=== PATIENT | male | born 1965 | race Caucasian/White ===

== ENCOUNTER 2022-12-19 07:27 | Outpatient (REF) | payer BC, SELFPAY ==
[2022-12-19 11:41] LABS: Appearance Urine Clear; Color Urine Yellow; Glucose Urine UA Negative (Negative); Leukocyte Esterase Urine Negative (Negative); Nitrite Urine Negative (Negative); Urine Blood Negative (Negative); Urine Ketones Trace mg/dL (Negative); Urine Protein Negative (Neg-Trace)
[2022-12-19 12:05] LABS: Alanine Aminotransferase 23 U/L (0-40); Albumin Level 4.3 g/dL (3.5-5.0); Alkaline Phosphatase 54 U/L (39-117); Anion Gap 13 (12-20); Aspartate Amino Transferase 25 U/L (5-37); Bilirubin Total 1.1 mg/dL (0.0-1.0); Blood Urea Nitrogen 10 mg/dL (9-16); Calcium 9.4 mg/dL (8.4-10.2); Carbon Dioxide 26 mmol/L (22-29); Chloride 107 mmol/L (96-108); Cholesterol 223 mg/dL (<200); Estimated Glomerular Filt Rate > 60; Glucose Fasting 96 mg/dL (60-99); HDL Cholesterol 71 mg/dL (>40); LDL Cholesterol Calculated 138 mg/dL (<100); Potassium 3.9 mmol/L (3.3-5.1); Sodium 142 mmol/L (135-145); Total Protein 7.4 g/dL (6.5-8.0); Triglycerides 70 mg/dL (<150)
[2022-12-19 12:10] LABS: Prostate Specific Antigen Scr 0.37 ng/mL (<0.05-4.0)
[2022-12-19 12:16] LABS: Creatinine Urine 214.23 mg/dL; Microalbum/Creatinine Ratio Ur 8.8 ug/mg cr (<30)
[2022-12-19 12:24] LABS: TSH reflex Free T4 1.07 uIU/mL (0.32-4.0)
== END 2022-12-19 07:28 | disposition home or self-care (01) ==
LOC: HO.WFDLDS 07:27
PROVIDERS: Visit Provider Family Medicine
DX: Z00.00 Encounter for general adult medical examination without abnormal findings (principal); I10 Essential (primary) hypertension; Z12.5 Encounter for screening for malignant neoplasm of prostate
CPT/HCPCS: 36415; 80053; 80061; 81003; 82043; 82570; 84153; 84443

== ENCOUNTER 2022-12-26 15:31 | Outpatient (AMB) | payer BC, SELFPAY ==
[2022-12-26 16:03] VITALS: BP 132/88; PULSE 82; RESP 13; TEMP 37.1; O2SAT 98; BMI 28.2
--- NOTE | 2022-12-26 16:03 | MHC.PC.OV ---
Vital Signs 12/26/22 16:03 Height 5 ft 10 in Weight 196 lb 6 oz BMI 28.2 BP 132/88 Blood Pressure Location Lt brachial Position Sitting Respiration 13 Pulse 82 Pulse Source Pulse Oximeter Temp 98.8 F Temp Source Oral Pulse Oximetry (%) 98 Oxygen Delivery Method Room Air Intake Visit Reasons: CPE with f/u labs and health maintenance Intake Note: Patient is here for an extended exam and he would like to report pain to both shoulders x1 year and worsening. Pain to the right elbow x6 months. Patient reports he has tried ibuprofen 800mg which did not help with the pain level. Patient reports he has not started to take the medications listed in his chart. Patient reports he wanted to see how his blood work looked before going back on medications again. 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 Labs were drawn 12/19/22. Reviewed labs with pt. Triglycerides 70. TC 223. LDl 138. HDL 71. He is on artovastatin 40mg daily. BP today 132/88. He is on valsartan 160mg daily. He reports he has stopped taking ibuprofen for his shoulder pain. Pt reports he had a colonoscopy when he turned 51. He is due again at 61 per pt. [facility] Medical History Tear meniscus knee Trigger finger, right middle finger Umbilical hernia High cholesterol Family History Maternal Grandmother Alcohol abuse Social History (Updated 12/26/22 @ 16:17 by She Bennett CMA) Household Members: Friend(s) Housing: House Are you a primary ambulatory care coordinator to a significant other at home: No Do you presently have visiting nurse or other home services: No 75 years or older and lives alone: No Alcohol intake: current Alcohol intake frequency: 3 or more drinks per day Alcohol type: hard liquor Patient Tobacco Use Status: Current everyday Tobacco user Tobacco use type: Smokeless Tobacco e-Cigarette/Vaping Use: Never Used Second Hand Smoke Exposure: No service: Yes ([employer]) Current occupational status: employed Current occupation: [employer] Current occupational exposures/hazards: Yes Sexual orientation: Unable to collect Gender identity: Unable to collect Cognitive needs: No Hearing needs: Yes Vision needs: Yes (Wears glasses for distance) Questionnaire PHQ-9 Over the last 2 weeks, how often have you been bothered by any of the following problems? 1. Little interest or pleasure in doing things: not at all 2. Feeling down, depressed, or hopeless: not at all 3. Trouble falling or staying asleep, or sleeping too much: not at all 4. Feeling tired or having little energy: not at all 5. Poor appetite or overeating: not at all 6. Feeling bad about yourself - or that you are a failure or have let yourself or your family down: not at all 7. Trouble concentrating on things, such as reading the newspaper or watching television: not at all 8. Moving or speaking so slowly that other people could have noticed. Or the opposite - being so fidgety or restless that you have been moving around a lot more than usual: not at all 9. Thoughts that you would be better off or of hurting yourself in some way: not at all Total score: 0 Depression Screening Interpretation: Negative Depression Screening Done: Yes 92707 - PHQ-9 Billing: Yes Source: Developed by Drs. John Pacheco, Geeta Soares, Keyon Goldsmith and colleagues, with an educational georgina from [employer]. Thrive Questionnaire Date Thrive assessed: 12/26/22 I am a: Patient What is your living situation today?: I have a steady place to live Within the past 12 months, did the food you bought not last and you didn't have the money to get more?: Never true Within the past 12 months, did you worry whether your food would run out before you got money to buy more?: Never true Do you have trouble paying for medicines?: No Do you have trouble getting transportation to medical appointments?: No Do you have trouble paying your heating and electricity bill?: No Do you have trouble taking care of your child, family member or friend?: No Do you have trouble with day-to-day activities such as bathing, preparing meals, shopping, managing finances, etc.?: No Are you currently unemployed and looking for a job?: No Are you interested in more education?: No Please select the resources that you would like help with: None Currently or been in a relationship where the following occur: no concerns reported AUDIT C Alcohol Use Questionnaire (AUDIT-C) 1. How often do you have a drink containing alcohol?: 4 or more times a week 2. How many drinks containing alcohol do you have on a typical day when you are drinking?: 3 or 4 (vodka and fresca) 3. How often do you have six or more drinks on one occasion?: Monthly Total Score: 7 Score Reviewed/Action Taken: Yes SUKHWINDER-7 AMB Questionnaire SUKHWINDER-7 Date SUKHWINDER - 7 assessed: 12/26/22 Feeling nervous, anxious, or on edge: 0 = Not at all Not being able to stop or control worryin = Not at all Worrying too much about different things: 0 = Not at all Trouble relaxin = Not at all Being so restless that it is hard to sit still: 0 = Not at all Becoming easily annoyed or irritable: 0 = Not at all Feeling afraid as if something awful might happen: 0 = Not at all Total SUKHWINDER-7 score (0-4 normal; 5-9 mild; 10-14 moderate; 15-21 severe): 0 Source: Developed by Drs. John Pacheco, Geeta Soares, Keyon Goldsmith and colleagues, with an educational georgina from [employer]. SUKHWINDER-7 Assessment Billing SUKHWINDER-7 Assessment Tool: SUKHWINDER-7 Assessment 53238 Review of Systems Const Denies chills, Denies fatigue, Denies fever(s), Denies headache(s) and Denies weakness Eyes Denies change in vision ENT Denies dizziness, Denies headache(s), Denies hearing loss, Denies nasal congestion, Denies sinus pain, Denies sinus pressure and Denies sore throat Card Denies chest pain, Denies lightheadedness, Denies dyspnea and Denies other (palpitations) Resp Denies cough, Denies dyspnea and Denies wheezing GI Denies abdominal pain, Denies melena, Denies hematochezia, Denies change in bowel habits, Denies dyspepsia and Denies nausea Denies hematuria and Denies dysuria Musc Denies abnormal gait, Denies myalgias, Denies arthralgias, Denies numbness and Denies tingling Skin/Breast Denies rash, Denies unusual bruising and Denies wounds Neuro Denies abnormal gait, Denies dizziness, Denies headache(s), Denies memory loss, Denies numbness, Denies Sensory deficit (Neuro), Denies tingling and Denies weakness Psych Denies anxiety, Denies depression and Denies memory loss Endo Denies cold intolerance, Denies fatigue, Denies heat intolerance, Denies polydipsia and Denies polyuria Glen/Lymph Denies easy bleeding and Denies easy bruising Aller/Immun Denies wheezing Physical exam (Primary Care) Vital Signs: Last Vital Signs Temp 98.8 F 12/26/22 16:03 Pulse 82 12/26/22 16:03 Resp 13 12/26/22 16:03 BP 132/88 12/26/22 16:03 Pulse Ox 98 12/26/22 16:03 Oxygen Delivery Method Room Air 12/26/22 16:03 BMI result Body Mass Index 28.2 Tobacco/Smoking Status: Tobacco use Status Tobacco use date assessed 12/26/22 12/26/22 16:11 Patient Tobacco Use Status Current everyday Tobacco 12/26/22 16:17 Tobacco use type Smokeless Tobacco 12/26/22 16:17 e-Cigarette/Vaping Use Never Used 12/26/22 16:17 PHQ-9: PHQ-9 Score PHQ-9: Total score 0 12/26/22 16:15 Depression Screening Interpretation: Negative Thrive Assessment: Date of Thrive Assessment Date Thrive assessed 12/26/22 12/26/22 16:15 Currently or been in a relationship where the following occur: no concerns reported Const General: no acute distress, well developed, alert and awake Nutritional Appearance: well nourished Orientation/consciousness: patient oriented x3 HENMT Head: Yes normocephalic and Yes atraumatic Ears: hearing grossly normal bilaterally and TM's normal bilaterally General nose exam: Normal external nose present and Normal nares present Mouth: Normal oral and palatal mucosa present and moist mucous membranes Teeth and gingiva: dentition normal Throat: Yes posterior oropharynx normal Eyes General: appearance normal, both eyes and all related structures Pupils: Equal, round and reactive pupils present and Pupil accommodation reflex normal EOM: EOMs intact bilaterally Neck Neck: Yes normal visual inspection, Yes no lymphadenopathy and Yes trachea midline Thyroid: Thyroid normal Carotids: no bruits Lymphatic: no lymphadenopathy noted Chest Chest palpation & inspection: normal inspection of the chest Resp Effort & Inspection: normal respiratory effort Auscultation: clear to auscultation bilaterally Cardio Rate: regular rate Rhythm: regular rhythm Heart sounds: S1 normal heart sound present, S2 normal heart sound present, no gallops, no murmurs and no rubs Bruits: no abdominal aortic bruits and no carotid bruits GI Palpation (GI): No Abdominal aortic bruit present, Soft to palpation, nontender, No hepatosplenomegaly present and No Rebound tenderness present Auscultation: normal bowel sounds General: Yes no CVA tenderness Back/Spine/Pelvis Back: no CVA tenderness Cervical Spine: cervical ROM normal and No Cervical spine tenderness Thoracic/Lumbar Spine: thoraco-lumbar ROM normal, No pain with thoraco-lumbar ROM, No thoracic spinal tenderness and No lumbar spinal tenderness Skin Lesions: no lesions Rashes: no rashes Trauma: no lacerations or abrasions Wounds: no wounds Nails: normal Neuro General: patient oriented x3 Cranial nerves: Yes Equal, round and reactive pupils present Cognition (Neuro): normal cognition Gait exam (Neuro): Normal gait present Motor exam (neuro): 5/5 motor strength present throughout Sensory Exam: No Sensory deficit (Neuro) Deep tendon reflexes (DTR's): Right patellar reflex intensity grade: 2+ and Left patellar reflex intensity grade: 2+ Extrem General: Yes normal to inspection and No edema Psych Appearance: grossly normal Affect: normal affect Attitude: cooperative Thought process: Normal thought process present Assessment and Plan Assessment & Plan (1) Adult general medical exam: Code(s): Z00.00 - Encounter for general adult medical examination without abnormal findings Plan: 56-year-old male presents for complete physical exam encouraged healthy diet with active lifestyle and plenty of exercise (2) Bilateral shoulder pain: Code(s): M25.511 - Pain in right shoulder; M25.512 - Pain in left shoulder Plan: ongoing bilateral shoulder pain. X-rays and PT are ordered though patient did not realize this. He will get started with these. I will call him if x-rays require action. He will call me if PT is not resolving his problem. Would then consider additional imaging and or referral to Ortho. (3) Hypertension: Code(s): I10 - Essential (primary) hypertension Plan: Blood pressure still in prehypertensive range. Advised a diet lower in salt / sodium. Advised weight loss and exercise as tolerated. He is able to check his blood pressures at home. He will call me if BP greater than 140/90 consistently would resume valsartan (4) Hyperlipidemia: Code(s): E78.5 - Hyperlipidemia, unspecified Plan: LDL is slightly elevated by HDL ratios are good encouraged a diet a little lower in saturated fats and cholesterol no current need for atorvastatin will follow (5) Screening for colon cancer: Code(s): Z12.11 - Encounter for screening for malignant neoplasm of colon Plan: patient had a colonoscopy at age 51 and was told to follow-up at age 61 up-to-date (6) Screening for prostate cancer: Code(s): Z12.5 - Encounter for screening for malignant neoplasm of prostate Plan: PSA was within normal limits (7) Bilateral change in hearing: Code(s): H91.93 - Unspecified hearing loss, bilateral Orders: Orders Comprehensive Dayhoit. Panel Fast Today Z00.00 - Encounter for general adult medical examination without abnormal findings Lipid Panel Today Z00.00 - Encounter for general adult medical examination without abnormal findings Referrals Audiology Referral H91.93 - Unspecified hearing loss, bilateral Medications: Discontinued valsartan Discontinued Reason: Doctor's Order 160 mg PO DAILY 30 days 30 tabs 0RF atorvastatin Discontinued Reason: Doctor's Order 40 mg PO DAILY 90 days 90 tabs 3RF Coding Level of Care Code Est Pt Level 3 (41318) Est Pt Prev Care 40-64y(80829) Diagnoses Adult general medical exam Z00.00 Bilateral shoulder pain M25.511; M25.512 Hypertension I10 Hyperlipidemia E78.5 Screening for colon cancer Z12.11 Screening for prostate cancer Z12.5 Bilateral change in hearing H91.93 Additional Codes SUKHWINDER-7 Assessment Billing - SUKHWINDER-7 Assessment Tool: SUKHWINDER-7 Assessment 63294 ([id number])
== END 2022-12-26 16:52 | disposition home or self-care (01) ==
PROVIDERS: PCP Family Medicine; Visit Provider Family Medicine
DX: Z00.00 Encounter for general adult medical examination without abnormal findings (principal); M25.511 Pain in right shoulder; M25.512 Pain in left shoulder; I10 Essential (primary) hypertension; E78.5 Hyperlipidemia, unspecified; H91.93 Unspecified hearing loss, bilateral
CPT/HCPCS: 99213; 99396

== ENCOUNTER 2022-12-27 09:17 | Outpatient (REF) | payer BC, SELFPAY ==
--- NOTE | ~2022-12-27 | XR_ITS ---
EXAMINATION: XR BILATERAL SHOULDERS CLINICAL INFORMATION: Bilateral shoulder pain. COMPARISON: None TECHNIQUE: 4 views of each shoulder. RIGHT SHOULDER: Moderate degenerative changes in the acromioclavicular joint with joint space narrowing and hypertrophic change. Degenerative changes with hypertrophic change along the glenoid. Glenohumeral alignment preserved. Mild hypertrophic change versus small soft tissue calcification change along the lateral aspect of the humeral head. Degenerative changes in the imaged upper thoracic spine. LEFT SHOULDER: Mild degenerative changes in the acromioclavicular joint with joint space narrowing and hypertrophic change. Small sclerotic focus in the humeral head, possibly a bone island. Degenerative changes with hypertrophic change along the glenoid. 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
--- NOTE | ~2022-12-27 | XR_ITS ---
EXAMINATION: XR BILATERAL SHOULDERS CLINICAL INFORMATION: Bilateral shoulder pain. COMPARISON: None TECHNIQUE: 4 views of each shoulder. RIGHT SHOULDER: Moderate degenerative changes in the acromioclavicular joint with joint space narrowing and hypertrophic change. Degenerative changes with hypertrophic change along the glenoid. Glenohumeral alignment preserved. Mild hypertrophic change versus small soft tissue calcification change along the lateral aspect of the humeral head. Degenerative changes in the imaged upper thoracic spine. LEFT SHOULDER: Mild degenerative changes in the acromioclavicular joint with joint space narrowing and hypertrophic change. Small sclerotic focus in the humeral head, possibly a bone island. Degenerative changes with hypertrophic change along the glenoid. XR/XR shoulder RT min 2V IMPRESSION: Moderate degenerative changes in the bilateral shoulders.
== END 2022-12-27 09:18 | disposition home or self-care (01) ==
LOC: HO.HMGCX 09:17
PROVIDERS: PCP Family Medicine; Visit Provider Family Medicine
DX: M25.511 Pain in right shoulder (principal); M25.512 Pain in left shoulder
CPT/HCPCS: 73030

== ENCOUNTER 2023-02-07 12:39 | Outpatient (AMB) | payer BC, SELFPAY ==
--- NOTE | 2023-02-07 12:46 | A.OFFVIS_ITS ---
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 Patient states that he injured his right shoulder while playing sports several years ago. Since that time he has had difficulty lifting his right hand above shoulder height. He has done physical therapy which aggravated his pain. He has also tried Tylenol and anti-inflammatory medicines which gave him minimal relief. He has had injections in the past which gave him no relief. Allergies Penicillins Allergy (Mild, Verified 12/26/22 16:08) Rash Medication List - Last Reconciled 02/08/23 by Sander Balbuena MD ibuprofen 800 mg PO Q8H PRN 30 days PFSH Medical History (Updated 02/07/23 @ 13:28 by Sander Balbuena MD) Tear meniscus knee Trigger finger, right middle finger Umbilical hernia High cholesterol Surgical History (Updated 02/07/23 @ 12:50 by Kyleigh Robertson CMA) H/O left knee surgery Family History Maternal Grandmother Alcohol abuse Social History (Updated 12/26/22 @ 16:17 by She Bennett CMA) Household Members: Friend(s) Housing: House Are you a primary career based intervention coordinator to a significant other at home: No Do you presently have visiting nurse or other home services: No Alcohol intake: current Alcohol intake frequency: 3 or more drinks per day Alcohol type: hard liquor Patient Tobacco Use Status: Current everyday Tobacco user Tobacco use type: Smokeless Tobacco e-Cigarette/Vaping Use: Never Used Second Hand Smoke Exposure: No service: Yes ([employer]) Current occupational status: employed Current occupation: [employer] Current occupational exposures/hazards: Yes Sexual orientation: Unable to collect Gender identity: Unable to collect Cognitive needs: No Hearing needs: Yes Vision needs: Yes (Wears glasses for distance) Physical Exam Vital Signs: BMI result Body Mass Index 28.1 Const Other: Well-nourished well-developed very friendly male awake alert and oriented x3 in no acute distress Extrem Other: Bilateral upper extremity examination shows good capillary refill, no skin lesions noted, normal sensation light touch Bilateral shoulder examination shows 4+ out of 5 strength with supraspinatus testing, positive impingement signs, tenderness over his acromioclavicular joint, no instability Results Reviewed Results Reviewed: X-rays of the patient's bilateral shoulder show severe acromioclavicular joint narrowing, type 2 acromion, no acute bony abnormalities Assessment & Plan Assessment & Plan (1) Impingement of right shoulder: Code(s): M25.811 - Other specified joint disorders, right shoulder Plan: Mr. Andersen presents with bilateral shoulder pains and weakness, right greater than left, due to impingement syndrome, acromioclavicular joint arthritis and possible full-thickness rotator cuff tearing. Thus, I will send the patient for an MRI of his right shoulder for further evaluation. I will see him back once the MRI is completed to discuss the findings and treatment options. Feel free to call me at any time should questions regarding his orthopedic management arise. Thank you very much for asking me to see this very friendly gentleman. I spent 22 minutes in reviewing the patient's records and imaging studies, seeing the patient and documenting in the medical record. Orders: Orders MR shoulder RT wo con 02/07/23 M25.811 - Other specified joint disorders, right shoulder Coding Level of Care Code New Pt Level 2 (65570) Diagnoses Impingement of right shoulder M25.811
[2023-02-07 12:48] VITALS: BMI 28.1
== END 2023-02-07 13:46 | disposition home or self-care (01) ==
PROVIDERS: PCP Family Medicine; Visit Provider Orthopaedic Surgery
DX: M25.811 Other specified joint disorders, right shoulder (principal)
CPT/HCPCS: 99202

== ENCOUNTER → 2023-02-07 12:39 | Outpatient (BNVA) | payer BC, SELFPAY | PROVIDERS: PCP Family Medicine; Visit Provider Orthopaedic Surgery ==

== ENCOUNTER 2023-02-08 07:00 | Outpatient (RCR) | payer BC, SELFPAY ==
--- NOTE | 2023-01-18 12:23 | MHC.PT.EP ---
[facility] [place] Office [place] Office [place] Office [address] Areli Lyman [address] [phone] F: [phone] F: [phone] F: [phone] F: [phone] Physical Therapy Plan of Care Date of Evaluation: 01/18/23 Date of Surgery: NA Diagnosis: B SHOULDER PAIN Assessment: Pt IS 57 YO M REFERRED TO PT FROM DR HOFFMAN WITH CHRONIC B SHLDER PAIN (Pt ALSO WITH R ELBOW PAIN). NO SPECIFIC INJURY TO SHLDERS, REPORTS PLAYED BASEBALL AND SOFTBALL WHEN YOUNGER AND CURRENTLY LIKES TO GOLF. 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 PRESENTS WITH POOR POSTURE, SIGNIFICANTLY LIMITED ROM AND STRENGTH IN SHLDERS (KRISTI ABDUCTION). POSITIVE IMPINGEMENT NOTED. EPICONDYLITIS NOTED R ELBOW. SHOULD BENEFIT FROM PT TO ADDRESS THESE ISSUES Frequency and Duration: The patient will be seen 2X/WK X 8 WKS Short Term Goals: 1. INCREASED POSTURE AWARENESS AND AWARENESS SHOULDER CARE 2. IMPROVED SLEEP 3. 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 I HEP WITH DC EX PLAN 2. INCREASED B SHLDER ROM FOR FLEX AND ABDUCTION TO AT LEAST 160 DEGREES EA 3. DECREASED R ELBOW PAIN AT LEAST 50% WITH ADLS 4. DECREASED SHOULDER PAIN AT LEAST 50% WITH ADLS 5. INCREASED SHLDER FLEX AND ABD STRENGTH AT LEAST 1/2 MM GRADE B Treatment Plan: Modalities to reduce pain, spasms and effusion. Manual therapy to restore motion and function. Therapeutic exercise to improve strength and flexibility. Neuromuscular re-education for posture and balance. Therapeutic activities to return to functional activities of daily living. Electronically signed by: ALVIN HERNANDEZ PT Please sign and return to therapist. Thank you for your referral.
--- NOTE | 2023-03-01 09:10 | MHC.PT.DC ---
[facility] [place] Office [place] Office [place] Office [address] Areli Lyman [address] [phone] F: [phone] F: [phone] F: [phone] F: [phone] Physical Therapy Discharge Report Diagnosis: B SHOULDER PAIN Date of Surgery: NA Date of Evaluation: 01/18/23 Date of Discharge: 03/01/23 Treatments to Date: 5 Cancellations to Date: No Shows to Date: Discharge Status: Patient Elected to Stop Discharge Summary: Pt WITH 5 PT SESSIONS WITHOUT RELIEF IN SHOULDER PAIN. SAW ORTHO WHO ORDERED MRI (+SUPRASPINATUS TEAR) TO HAVE SHLDER SURGERY WITH DR MICHAEL ON MAR 10, ORTHO FU Feb. THIS PT SPOKE WITH Pt AND MAGGIE SEWELL RE PO PT EVAL (FEASIBLY Feb AFTER FIRST PO VISIT UNLESS DR MICHAEL LIKES HIS Pt'S TO BE SEEN EARLIER). MAGGIE WILL FIND OUT THIS INFO AND SPEAK WITH ROX PRADO (NEW COORDINATOR) FOR HER TO CONTACT PT TO SCHEDULE PO EVAL Electronically signed by: ALVIN HERNANDEZ PT Please sign and return to therapist. Thank you for your referral.
== END 2023-03-01 09:11 | disposition home or self-care (01) ==
LOC: HO.PTWFD 07:00
PROVIDERS: PCP Family Medicine; Visit Provider Family Medicine
DX: M25.511 Pain in right shoulder (principal); M25.512 Pain in left shoulder
CPT/HCPCS: 97110; 97140; 97150; 97162; 97535

== ENCOUNTER 2023-02-15 08:31 | Outpatient (AMB) | payer BC, SELFPAY ==
--- NOTE | 2023-02-15 08:33 | A.OFFVIS_ITS ---
Intake Intake Visit Reasons: Right shoulder pain Intake Note: Mauro is a 57 year old male who presents with complaints of progressively worsening right shoulder pain and weakness. The patient describes his right shoulder pain as sharp and severe in nature. His pain has gotten worse over the last few years in spite of continued non operative treatments. He has had difficulty playing golf and sleeping because of his pain. He has done physical therapy exercises which aggravated his pain. He has also tried Tylenol and ibuprofen which gave him minimal relief. He reports difficulty lifting his right hand above shoulder height. Allergies Penicillins Allergy (Mild, Verified 02/15/23 08:37) Rash Medication List - Last Reconciled 02/15/23 by Sander Balbuena MD ibuprofen 800 mg PO Q8H PRN 30 days PFSH Medical History (Updated 02/07/23 @ 13:28 by Sander Balbuena MD) Tear meniscus knee Trigger finger, right middle finger Umbilical hernia High cholesterol Surgical History (Updated 02/07/23 @ 12:50 by Kyleigh Robertson [facility]) H/O left knee surgery Family History Maternal Grandmother Alcohol abuse Social History (Updated 12/26/22 @ 16:17 by She Bennett CMA) Household Members: Friend(s) Housing: House Are you a primary managed care liaison to a significant other at home: No Do you presently have visiting nurse or other home services: No 75 years or older and lives alone: No Alcohol intake: current Alcohol intake frequency: 3 or more drinks per day Alcohol type: hard liquor Patient Tobacco Use Status: Current everyday Tobacco user Tobacco use type: Smokeless Tobacco e-Cigarette/Vaping Use: Never Used Second Hand Smoke Exposure: No service: Yes ([employer]) Current occupational status: employed Current occupation: [employer] Current occupational exposures/hazards: Yes Sexual orientation: Unable to collect Gender identity: Unable to collect Cognitive needs: No Hearing needs: Yes Vision needs: Yes (Wears glasses for distance) Physical Exam Const Other: Well-nourished well-developed very friendly male awake alert and oriented x3 in no acute distress Lungs - clear to auscultation bilaterally with symmetric expansion Cardiovascular exam - regular rate and rhythm Abdominal exam - soft nontender nondistended Extrem Other: Bilateral upper extremity examination shows good capillary refill, no skin lesions noted, normal sensation light touch Right shoulder examination shows decreased range of motion when compared to his left shoulder, 4/5 strength with supraspinatus testing, positive impingement signs, tenderness over his acromioclavicular joint, no instability Results Reviewed Results Reviewed: MRI of the patient's right shoulder show severe acromioclavicular joint narrowing, a type 3 acromion, a full-thickness tear of the supraspinatus tendon Assessment & Plan Assessment & Plan (1) Right shoulder pain: Code(s): M25.511 - Pain in right shoulder (2) Impingement of right shoulder: Code(s): M25.811 - Other specified joint disorders, right shoulder Plan Mr. Andersen presents with progressively worsening right shoulder pain and weakness due to impingement syndrome, acromioclavicular joint arthritis and a full-thickness rotator cuff tear. I had a lengthy discussion with the patient regarding the treatment options. At this point the patient has failed continued non operative treatments. The risks and benefits of right shoulder surgery were discussed at length with the patient. The patient wishes to proceed with surgery. Surgery will most likely involve right shoulder diagnostic arthroscopy with distal clavicle excision, acromioplasty and rotator cuff repair. The patient will contact my office to pick a surgery date. He will follow-up as instructed. Feel free to call me at any time should questions regarding his orthopedic management arise. I spent 22 minutes in reviewing the patient's records and imaging studies, seeing the patient and documenting in the medical record. Coding Level of Care Code Est Pt Level 2 (66892) Diagnoses Right shoulder pain M25.511 Impingement of right shoulder M25.811
== END 2023-02-15 08:58 | disposition home or self-care (01) ==
PROVIDERS: PCP Family Medicine; Visit Provider Orthopaedic Surgery
DX: M25.811 Other specified joint disorders, right shoulder (principal); M25.511 Pain in right shoulder
CPT/HCPCS: 99213

== ENCOUNTER → 2023-02-15 08:31 | Outpatient (BNVA) | payer BC, SELFPAY | PROVIDERS: PCP Family Medicine; Visit Provider Orthopaedic Surgery ==

== ENCOUNTER 2023-03-10 10:14 | Day surgery (SDC) | payer BC, SELFPAY ==
[2023-03-07 07:06] VITALS: BMI 28.1
--- NOTE | 2023-03-08 12:25 | P.CONAN_ITS ---
HPI - Anesthesia Eval Consult details Narrative: 57yo M for Right Shoulder Arthroscopy,distal clavical excision,acromialplasty, Capsular Release and manipulation Follows [facility] PCP. Stable at 11/2022 PE appointment. [facility] Active Problems Active Problems: All Active Problems (Updated 02/07/23 @ 13:28 by Sander Balbuena MD) Impingement of right shoulder (Acute) Right tennis elbow (Acute) Screening for prostate cancer (Acute) Screening for colon cancer (Acute) Adult general medical exam (Acute) Ganglion cyst of foot (Acute) Bilateral shoulder pain (Acute) Hyperlipidemia (Acute) Hypertension (Acute) Laboratory exam ordered as part of routine general medical examination (Acute) Past Medical History Medical History Tear meniscus knee Trigger finger, right middle finger Umbilical hernia High cholesterol Family History Family History Maternal Grandmother Alcohol abuse Surgical History Surgical History H/O left knee surgery Social History Social History (Updated 12/26/22 @ 16:17 by She Bennett CMA) Household Members: Friend(s) Housing: House Are you a primary career transition specialist to a significant other at home: No Do you presently have visiting nurse or other home services: No Alcohol intake: current Alcohol intake frequency: 0-2 drinks per day Alcohol type: hard liquor Patient Tobacco Use Status: Current everyday Tobacco user Tobacco use type: Smokeless Tobacco e-Cigarette/Vaping Use: Never Used Second Hand Smoke Exposure: No Use of substances other than those prescribed or required for medical reasons: Yes Substance Use Frequency: Occasionally Are you DNR?: No Advance Directives: No (pt wants to be made DNR) Advance Directives Information Provided: Yes Advance Directives on File: No Recently lost weight without trying: No Nutrition Risks: No Nutritional Risk service: Yes ([employer]) Current occupational status: employed Current occupation: [employer] Current occupational exposures/hazards: Yes Sexual orientation: Unable to collect Gender identity: Unable to collect Cognitive needs: No Hearing needs: Yes Vision needs: Yes (Wears glasses for distance) Meds Allergies Allergy/AdvReac Type Severity Reaction Status Date / Time Penicillins Allergy Mild Rash Verified 02/15/23 08:37 Active Medications: Current Medications Clindamycin Phosphate (Cleocin) 600 mg in 50 mls @ 100 mls/hr IV PREOP ONE Stop: 03/10/23 07:02 Exam Height,Weight and Vital Signs: Height 5 ft 10 in Weight 88.904 kg Pertinent Lab Results Pertinent Lab Results: Laboratory Tests 12/19/22 07:10 Sodium 142 Potassium 3.9 Chloride 107 Carbon Dioxide 26 BUN 10 Creatinine 0.91 Assessment and Plan Assessment Anesthesia Assessment: Chart Reviewed
[2023-03-10] VITALS (8 sets, daily range): BP systolic 105–156; BP diastolic 80–105; PULSE 70–81; RESP 14–18; TEMP 36.4–37; O2SAT 94–99
[2023-03-10] MEDS: Lactated Ringers 1,000 ML 100 ML IVCONT (11:02)
--- NOTE | 2023-03-10 12:08 | P.CONAN_ITS ---
[facility], [facility] Active Problems Active Problems: All Active Problems (Updated 02/07/23 @ 13:28 by Sander Balbuena MD) Impingement of right shoulder (Acute) Right tennis elbow (Acute) Screening for prostate cancer (Acute) Screening for colon cancer (Acute) Adult general medical exam (Acute) Ganglion cyst of foot (Acute) Bilateral shoulder pain (Acute) Hyperlipidemia (Acute) Hypertension (Acute) Laboratory exam ordered as part of routine general medical examination (Acute) Past Medical History Medical History Tear meniscus knee Trigger finger, right middle finger Umbilical hernia High cholesterol Family History Family History Maternal Grandmother Alcohol abuse Family history of problems with anesthesia: No Surgical History Surgical History H/O left knee surgery History of Problems with Anesthesia: No Social History Social History (Updated 12/26/22 @ 16:17 by She Bennett CMA) Household Members: Friend(s) Housing: House Are you a primary rn wound care to a significant other at home: No Do you presently have visiting nurse or other home services: No Alcohol intake: current Alcohol intake frequency: 0-2 drinks per day Alcohol type: hard liquor Patient Tobacco Use Status: Current everyday Tobacco user Tobacco use type: Smokeless Tobacco e-Cigarette/Vaping Use: Never Used Second Hand Smoke Exposure: No Use of substances other than those prescribed or required for medical reasons: Yes Substance Use Frequency: Occasionally Are you DNR?: No Advance Directives: No Advance Directives Information Provided: Yes Advance Directives on File: No Recently lost weight without trying: No Nutrition Risks: No Nutritional Risk service: Yes ([employer]) Current occupational status: employed Current occupation: [email or web address] Current occupational exposures/hazards: Yes Sexual orientation: Unable to collect Gender identity: Unable to collect Cognitive needs: No Hearing needs: Yes Vision needs: Yes (Wears glasses for distance) Meds Allergies Allergy/AdvReac Type Severity Reaction Status Date / Time Penicillins Allergy Mild Rash Verified 02/15/23 08:37 Active Medications: Current Medications Lactated Ringer's (Lr) 1,000 mls @ 100 mls/hr IVCONT .Q10H JASS Last Admin: 03/10/23 11:02 Dose: 100 mls/hr Exam Height,Weight and Vital Signs: Height 5 ft 10 in Weight 88.904 kg Last Vital Signs Temp 98.6 F 03/10/23 10:53 Pulse 81 03/10/23 10:53 Resp 16 03/10/23 10:53 BP 156/105 H 03/10/23 10:53 Pulse Ox 97 03/10/23 10:53 O2 Del Method Room Air 03/10/23 10:53 Airway Mallampati Class: II TM Dist: >3cm Neck ROM: Full Assessment and Plan Assessment Anesthesia Assessment: Anesthesia Plan Discussed and Chart Reviewed Final Anesthetic Review Family History of Problems with Anesthesia: No History of Problems with Anesthesia: No NPO: Yes ASA Class: II Final Preanesthetic Review: No Changes in Pt Med Stat, Meds/Allgs Chart Reviewed, Consent Obtained/Reviewed and Anes Risks/Benef Reviewed Patient Risk: Low Procedure Risk: Intermediate Anesthetic Plan Anesthetic Plan: GA Disposition: Standard PACU
--- NOTE | 2023-03-10 15:49 | PM.OP ---
Brief Operative Note Date of Service: 03/10/23 Pre-op diagnosis: Right shoulder impingement syndrome, right shoulder acromioclavicular joint arthritis, right shoulder rotator cuff tear Post-op diagnosis: same Procedure: Right shoulder diagnostic arthroscopy with right shoulder arthroscopic distal clavicle excision, right shoulder arthroscopic acromioplasty, right shoulder mini-open rotator cuff repair Implants: One suture anchor (He [employer] Nephew Twinfix suture anchor with #2 Ultrabraid suture) Surgeon: Sander Balbuena MD Anesthesia: GETA and regional Was an [employer] Supervisor used for this Procedure?: No Estimated blood loss (mL): 10 Pathology: none sent Condition: stable Disposition: PACU
--- NOTE | 2023-03-10 15:50 | P.OP_ITS ---
Operative Note Operative Note Date of Service: 03/10/23 Narrative: After the patient was identified as Mauro Andersen and his right shoulder was initialed by myself the patient was brought to the holding area where a right shoulder interscalene regional block was performed by the anesthesiologist in routine fashion. The patient was then brought to the operating room where general anesthesia was induced by the anesthesiologist in routine fashion. Because of the patient's allergy to penicillins he was given 600 mg of IV clindamycin preoperatively for infection prophylaxis. Examination under anesthesia of the patient's right shoulder showed full passive range of motion of the patient's right shoulder when compared to the left. The patient was gently positioned in the beach chair position with all bony prominences well padded. The patient's right shoulder region and upper extremity were prepped and draped in sterile fashion. A formal time-out was completed. A #11 scalpel blade was used to make a posterior portal 2 cm inferior and 1 cm medial to the posterolateral corner of the acromion. Blunt trocar technique was used to enter the glenohumeral joint in routine fashion. An anterior portal was made just lateral to the coracoid process after proper positioning was confirmed using a spinal needle. Diagnostic arthroscopy showed minimal degenerative changes of the glenoid and humeral head articular surfaces. There was a full-thickness tear of the supraspinatus tendon. There was no evidence of injury to the biceps tendon or its insertion onto the glenoid. There was no inflammation of the anterior joint capsule. The arthroscope was then placed from the posterior portal into the subacromial space. A lateral portal was made 2 fingerbreadths lateral to the anterior lateral corner of the acromion. The ArthroCare Wand was used to ablate soft tissues along the undersurface of the acromion as well as to excise the coracoacromial ligament. There was a sharp spur along the undersurface of the acromion which was removed using the hooded bur. The arthroscope was then placed into the lateral portal and the acromioplasty was completed with the bur in the posterior portal using the posterior aspect of the acromion as a cutting block. The ArthroCare Wand was then brought in through the anterior portal and was used to ablate soft tissues along the acromioclavicular joint and distal clavicle. The posterior and superior ligamentous structures were left intact. A distal clavicle excision of 8 mm was performed using the hooded bur. Any remaining bursal tissue was removed using the arthroscopic shaver. The subacromial space was irrigated and then drained. All arthroscopic instruments were removed. Sterile gloves were changed and the shoulder was once again prepped with Betadine. A #15 scalpel blade was used to extend the lateral portal to the lateral edge of the acromion. The subacromial tissues were dissected using electrocautery down to the superficial deltoid fascia. The trocar split in the anterior raphe of the deltoid was then extended to the lateral edge of the acromion using electrocautery and curved Seymour scissors. Any remaining bursal tissue was removed using curved Seymour scissors. Subacromial and subdeltoid adhesions were bluntly dissected. The undersurface of the acromion was palpated and it was smooth. A #2 Ethibond tag suture was placed into the supraspinatus tendon. The tendon was easily mobilized to its insertion point on the glenoid. The wound was irrigated with copious amounts of normal saline solution. One suture anchor was placed into the greater tuberosity in routine fashion. The rotator cuff repair was then performed using horizontal mattress sutures under minimal tension with the patient's elbow at their side. Following the repair the shoulder was taken through a full range of motion. The repair was stable. The wound was irrigated with copious amounts of normal saline solution. The superficial and deep deltoid fascia were closed with #1 Vicryl [id number] interrupted suture. The wound was once again irrigated. The subcutaneous tissues were closed with 2-0 Vicryl interrupted suture. The skin was closed with 3-0 Prolene subcuticular suture and Steri- Strips. The anterior and posterior portals were closed with 3-0 nylon interrupted suture. Dry sterile dressing was placed over all incisions. The patient's right upper extremity was placed into a sling. The patient was awoken and extubated in the operating room. The patient was transferred to the recovery room in stable condition.
[2023-03-10] MEDS: Clindamycin Phosphate/D5W 600 MG/50 ML PIGGYBACK 100 MG IV (16:26)
== END 2023-03-10 17:30 | disposition home or self-care (01) ==
PROVIDERS: PCP Family Medicine; Visit Provider Orthopaedic Surgery
PROC: (CPT 29805; principal; 2023-03-10 12:40)
DX: M75.101 Unspecified rotator cuff tear or rupture of right shoulder, not specified as traumatic (principal); M75.41 Impingement syndrome of right shoulder; M19.011 Primary osteoarthritis, right shoulder; E78.00 Pure hypercholesterolemia, unspecified; Z88.0 Allergy status to penicillin; Z98.890 Other specified postprocedural states; F17.290 Nicotine dependence, other tobacco product, uncomplicated; Z79.1 Long term (current) use of non-steroidal anti-inflammatories (NSAID)
CPT/HCPCS: 29824; 23412; 29826; C1713; J0171; J0665; J0736; J1100; J2250; J2405; J2704; J2795

== ENCOUNTER → 2023-03-10 10:14 | Outpatient (BNV) | payer BC, SELFPAY | PROVIDERS: PCP Family Medicine; Visit Provider Orthopaedic Surgery | DX: M75.122 Complete rotator cuff tear or rupture of left shoulder, not specified as traumatic (principal); M19.012 Primary osteoarthritis, left shoulder; M75.42 Impingement syndrome of left shoulder | CPT/HCPCS: 23412; 29824; 29826 ==

== ENCOUNTER 2023-03-23 09:01 | Outpatient (AMB) | payer BC, SELFPAY ==
--- NOTE | 2023-03-23 09:08 | A.OFFVIS_ITS ---
Intake Intake Visit Reasons: PO-Rt RTC Repair 03/10/23 Intake Note: Mauro a 57 year old male presents today for a post operative right RTC on 03/10/23 . Patient reports intense pain in the beginning however his pain has improved. He states being limited on ROM. Allergies Penicillins Allergy (Mild, Verified 03/23/23 09:11) Rash HPI PO-Rt RTC Repair 03/10/23 HPI Details 57-year-old male who returns to the [facility] today for post-op right RTC repair, 03/09/[address] Balbuena. He reports he had intense pain in his shoulder which has been currently improved. He rates the pain as about 5 on the scale of 0-10. He also c/o limited ROM in his shoulder which is his primary concern. He is doing well otherwise and has no other concerns today. [facility] Medical History (Updated 03/23/23 @ 09:26 by Fernando Meneses PA-C) Tear meniscus knee Trigger finger, right middle finger Umbilical hernia High cholesterol Surgical History H/O left knee surgery Family History Maternal Grandmother Alcohol abuse Social History Household Members: Friend(s) Housing: House Are you a primary direct care counselor to a significant other at home: No Do you presently have visiting nurse or other home services: No 75 years or older and lives alone: No Alcohol intake: current Alcohol intake frequency: 0-2 drinks per day Alcohol type: hard liquor Patient Tobacco Use Status: Current everyday Tobacco user Tobacco use type: Smokeless Tobacco e-Cigarette/Vaping Use: Never Used Second Hand Smoke Exposure: No service: Yes ([employer]) Current occupational status: employed Current occupation: [employer] Current occupational exposures/hazards: Yes Sexual orientation: Unable to collect Gender identity: Unable to collect Cognitive needs: No Hearing needs: Yes Vision needs: Yes (Wears glasses for distance) Review of Systems Const All systems reviewed & are unremarkable except as noted in HPI and below Physical Exam Const General: cooperative and no acute distress Orientation/consciousness: patient oriented x3 Resp Effort & Inspection: normal respiratory effort and able to speak in complete sentences Cardio Peripheral pulses: Peripheral pulses 2+ throughout Neuro General: patient oriented x3 Extrem Other: Right shoulder: Incision clean, dry and intact. No erythema or drainage. Sensation is intact. Results Reviewed Results Reviewed: Brief Operative Note Date of Service: 03/10/23 Pre-op diagnosis: Right shoulder impingement syndrome, right shoulder acromioclavicular joint arthritis, right shoulder rotator cuff tear Post-op diagnosis: same Procedure: Right shoulder diagnostic arthroscopy with right shoulder arthroscopic distal clavicle excision, right shoulder arthroscopic acromioplasty, right shoulder mini-open rotator cuff repair Implants: One suture anchor ([employer] Nephew Twinfix suture anchor with #2 Ultrabraid suture) Surgeon: Sander Balbuena MD Assessment & Plan Assessment & Plan (1) Impingement of right shoulder: Code(s): M25.811 - Other specified joint disorders, right shoulder (2) Rotator cuff tear, right: Code(s): M75.101 - Unspecified rotator cuff tear or rupture of right shoulder, not specified as traumatic Plan The patient will begin physical therapy for his right shoulder tomorrow. I did confirm with Dr. Balbuena that he does not need to wear the sling at all time as long as he is not putting his arm out of his body. He can wear the sling when he is out and about incase he has a fall or involuntary movement, he will have the arm close to his body. 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 I advised against pushing through pain or discomfort. He should return in [address] Balbuena, sooner if needed. Orders: Orders PT Evaluation and Treatment Today M25.811 - Other specified joint disorders, right shoulder, M75.101 - Unspecified rotator cuff tear or rupture of right shoulder, not specified as traumatic Patient Instructions: Scribed for Fernando Meneses PA-C, by Declan Rosenthal medical technologist, on 03/23/2023 at 9:00 AM EST. Fernando Thacker PA-C, have personally reviewed and agree with the information entered by the scribe. Coding Level of Care Code Global (38185) Diagnoses Impingement of right shoulder M25.811 Rotator cuff tear, right M75.101
== END 2023-03-23 09:50 | disposition home or self-care (01) ==
PROVIDERS: PCP Family Medicine; Visit Provider Physician Assistant
DX: M25.811 Other specified joint disorders, right shoulder (principal); M75.101 Unspecified rotator cuff tear or rupture of right shoulder, not specified as traumatic
CPT/HCPCS: 99024

== ENCOUNTER → 2023-03-23 09:01 | Outpatient (BNVA) | payer BC, SELFPAY | PROVIDERS: PCP Family Medicine; Visit Provider Physician Assistant ==

== ENCOUNTER 2023-04-25 09:41 | Outpatient (AMB) | payer BC, SELFPAY ==
--- NOTE | 2023-04-25 09:53 | A.OFFVIS_ITS ---
Intake Intake Visit Reasons: PO-Rt RTC Repair 03/10/23 Intake Note: Mauro a 57 year old male presents today for a post operative right RTC on 03/10/23 Patient reports he is feeling good he is finally getting some good passive ROM. He is going to physical therapy and it is going well. He has no longer taking narcotics for his discomfort. He denies any fevers or chills. Allergies Penicillins Allergy (Mild, Verified 03/23/23 09:11) Rash [facility] Medical History (Updated 04/26/23 @ 10:05 by Sander Balbuena MD) Tear meniscus knee Trigger finger, right middle finger Umbilical hernia High cholesterol Surgical History (Updated 04/25/23 @ 09:58 by Reema Rosas [facility]) Hx of shoulder surgery (03/10/23) H/O left knee surgery Family History Maternal Grandmother Alcohol abuse Social History Household Members: Friend(s) Housing: House Are you a primary health care / medical job titles to a significant other at home: No Do you presently have visiting nurse or other home services: No Alcohol intake: current Alcohol intake frequency: 0-2 drinks per day Alcohol type: hard liquor Patient Tobacco Use Status: Current everyday Tobacco user Tobacco use type: Smokeless Tobacco e-Cigarette/Vaping Use: Never Used Second Hand Smoke Exposure: No service: Yes ([employer]) Current occupational status: employed Current occupation: [employer] Current occupational exposures/hazards: Yes Sexual orientation: Unable to collect Gender identity: Unable to collect Cognitive needs: No Hearing needs: Yes Vision needs: Yes (Wears glasses for distance) Physical Exam Extrem Other: Right shoulder examination shows that the surgical incisions are well healed, no erythema, almost full passive range of motion when compared to his left shoulder, minimal discomfort with resisted internal and external rotation Assessment & Plan Assessment & Plan (1) Right shoulder pain: Code(s): M25.511 - Pain in right shoulder Plan Mr. Andersen continues to do very well after undergoing right shoulder rotator cuff repair surgery on 03/10/2023. He will continue going to formal physical therapy for now. He can begin active range of motion exercises in 2 weeks. The do's and don'ts of lifting were discussed at length with the patient. Will contact me prior to his follow-up appointment in 2 months should any questions or concerns arise. Feel free to call me at any time should questions regarding his orthopedic management arise. Coding Level of Care Code Global (16520) Diagnoses Right shoulder pain M25.511
== END 2023-04-25 10:22 | disposition home or self-care (01) ==
PROVIDERS: PCP Family Medicine; Visit Provider Orthopaedic Surgery
DX: M25.511 Pain in right shoulder (principal)
CPT/HCPCS: 99024

== ENCOUNTER → 2023-04-25 09:41 | Outpatient (BNVA) | payer BC, SELFPAY | PROVIDERS: PCP Family Medicine; Visit Provider Orthopaedic Surgery ==

== ENCOUNTER 2023-05-26 07:00 | Outpatient (RCR) | payer BC, SELFPAY ==
--- NOTE | 2023-04-20 13:01 | MHC.PT.OD ---
[facility] [place] Office [place] Office [place] [facility] [address] Areli Lyman [address] [phone] F: [phone] F: [phone] F: [phone] F: [phone] Physical Therapy Daily Note Diagnosis: M25.811 Other specified joint disorders, right shoulder, M75.101 Unspecified rotator cuff tear or rupture of right shoulder, not specified as traumatic, Procedure: 03/10/23: Right shoulder diagostic arthroscopy with right shoulder arthroscopy distal clavicle exicision, right shoulder athroscroic acromioplasty, mini right shoulder min- open rotator cuff repair date of script 03/23/23 Unique Meneses PA-C Date of Surgery: 03/10/23 Date of Evaluation: 03/24/23 Date of Treatment: 04/20/23 Treatments to Date: Cancellations to Date: No Shows to Date: Authorized Visits: 4 Insurance End Date: Precautions/ Contraindications:R RTC repair 03/10/23 Subjective: Reports just came back from vacation, got Covid last 04/13/22, has not been doing much for stretches reports feeling better overall. To see next Monday. Pain Score and Location: 4 R SHOULDER Objective Flowsheet: Tests & Measures see eval Refer to Advanced CEU Arthroscopic Rotator Cuff repair medium to large tears protocol AAROM flexion 118, PROM 120 flexion, PROM abd 100. Exercises Review of AAROM flexion table slides in sitting x 10 sec hold x 5R, AAROM scaption x 10 sec hold x 5R, AAROM seated shana flexion x 2 sets 10R x 20 sec hold, advised to be careful with performance of standing shoulder flexion with AAROM shana, review of AAROM supine cane flexion x 10 sec hold x 5R. Ice to R shoulder x 10 minutes anterior/posteroprly in supine. Will benefit from trial of submax isometrics (did not add day one due to pain) and lack of icing/sling/meds day one. If adding will need to be submax and subpainful- SUP FOR PROM R SHLDER FLEX (TO ~90 DEGREES) WITH END RANGE HOLD, ER WITH TOWEL ROLL UNDER UPPER ARM (TO ~45 DEGREES), IR, ABD (TO ~ 45 DEGREES) ED RE PROTOCOL, ICE USE, SLEEP POSITION, WRIST/ELBOW MOTION, PAINFREE STRETCHING Modalities Ice to anterior/posterior shoulder x 10 minutes Assessment: 04/20/23: Pt returns from vacation reports recently recovered from COVID infection which he had on 04/15/23. Pt exhibits good tolerance for AAROM activities today. Pt to consider obtaining shoulder shana for home as he expressd positive response to use in the office. Educated in the importance of low GENTLE stretching to tolerance, low reps. Pt educated no heavy lifting. Educated re: joint protection/protocol/goals of recovery. Pt has D/C use of sling, reports ice after stretching. Reports has D/c use of over the counter pain medications. To see Dr. Balbuena next Monday04/25/23. 04/05/23: PINCHING SENSATION R ANT SHLDER WITH END RANGES OF MOTION, UT COMP NOTED, TO LOOK INTO GETTING HOME SHANA. Pt TO BE ON VACATION NEXT WEEK. ORTHO FU 04/25 PT Plan: BEGIN ISOMETRICS NEXT SESSION, PROM>AAROM>STRENGTHENING, MODALITIES PRN per Advanced CEU protocol see chart Short Term Goals: 1. AAROM R shoulder flexion 115 (as allowed per protocol). 2. AAROM R shoulder ER to 45 ( as allowed per protocol). 3. Initiate self care/HEP program. 4. Sleep >3 hours without pain secondary to R shoulder. 5. Improve SPADI score by 25%. Services Engineer Goals: 1. AROM R shoulder flexion to 130 (as allowed per protocol). 2. AROM R shoulder abduction to 120 (as allowed per protocol). 3. I HEP. 4. Resume ability to sleep in R SL. 5. Strength R shoulder globally 5/5. 6. R middle trap 5/5. 7. Be able to reach behind back to don belt MOD I. Electronically signed by: Sneha Stephenson, PT, DPT
--- NOTE | 2023-05-12 07:39 | MHC.PT.OD ---
[facility] [place] Office [place] Office [place] Office [address] Areli Lyman [address] [phone] F: [phone] F: [phone] F: [phone] F: [phone] Physical Therapy Daily Note Diagnosis: M25.811 Other specified joint disorders, right shoulder, M75.101 Unspecified rotator cuff tear or rupture of right shoulder, not specified as traumatic, Procedure: 03/10/23: Right shoulder diagostic arthroscopy with right shoulder arthroscopy distal clavicle exicision, right shoulder athroscroic acromioplasty, mini right shoulder min- open rotator cuff repair date of script 03/23/23 Unique Meneses PA-C Date of Surgery: 03/10/23 Date of Evaluation: 03/24/23 Date of Treatment: 05/12/23 Treatments to Date: Cancellations to Date: No Shows to Date: Authorized Visits: 8 Insurance End Date: Precautions/ Contraindications:R RTC repair 03/10/23 Subjective: When therapist is asking about ROM stretches, I forgot about that one. Pt is 9 weeks post, 02/28/23 Pain Score and Location: 2 R SHOULDER Objective Flowsheet: Tests & Measures see eval Refer to Advanced CEU Arthroscopic Rotator Cuff repair medium to large tears protocol AAROM flexion 118, PROM 120 flexion, PROM abd 100. Exercises HL FOR AAROM SHLDER FLEX X 20 R, SEATED TABLE SLIDE FOR SCAPTION AND ABDUCTION X 10 R EA, PRONE FOR R SHLDER EXT, ROW, TRICEP, extension X 10 R x 2R EA with cues for scapular retraction, SEATED SHANA SHLDER FLEX AND SCAPTION X 10 R EA, AAROM cane flexion and scaption in standing also with aide of opposite hand, slideboard for scaption in sitting to gentle ROM REV HERMILO FLEX, EXT, ER, IR, ADD, ABD X 10 R EA. Will benefit from trial of submax isometrics (did not add day one due to pain) and lack of icing/sling/meds day one. If adding will need to be submax and subpainful- Review of AAROM at home with shyann, held today due to time constraint of patient, wants to obtain isometrics initiation- pt demonstrating he is doing well in regard to HEP. ED RE PROTOCOL, ICE USE, SLEEP POSITION, WRIST/ELBOW MOTION, PAINFREE STRETCHING Modalities Ice to anterior/posterior shoulder x 10 minutes Assessment: 05/12/23: Pt expressing he has not been doing aoo of his ROM exercises, states he forgot. Pt remains tight in end ranges, is challenged with initiation of isometrics. Pt encouraged to keep with AAROM activities several times daily. He reports mild ache/soreness with isometrics. Overall will benefit from continued PT twice weekly to progress ROM and strength. Will reach out to Dr. Balbuena re: clarification for strengthening as no mention of this is in the office note. AAROM ER to ear, AAROM IR to medial R glute, AAROM flexion advancing to ~130 degrees with shana, AROM flexion 110. GOOD SILVINO TO EXERCISES. PROGRESSING WITH ROM PT Plan: Await further clarification for initiation of strengthening activities. Short Term Goals: 1. AAROM R shoulder flexion 115 (as allowed per protocol). 2. AAROM R shoulder ER to 45 ( as allowed per protocol). 3. Initiate self care/HEP program. 4. Sleep >3 hours without pain secondary to R shoulder. 5. Improve SPADI score by 25%. 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 AROM R shoulder flexion to 130 (as allowed per protocol). 2. AROM R shoulder abduction to 120 (as allowed per protocol). 3. I HEP. 4. Resume ability to sleep in R SL. 5. Strength R shoulder globally 5/5. 6. R middle trap 5/5. 7. Be able to reach behind back to don belt MOD I. Electronically signed by: Sneha Stephenson, PT, DPT
== END 2023-08-21 07:36 | disposition home or self-care (01) ==
LOC: HO.PTWFD 07:00
PROVIDERS: PCP Family Medicine; Visit Provider Physician Assistant
DX: M25.811 Other specified joint disorders, right shoulder (principal); M75.101 Unspecified rotator cuff tear or rupture of right shoulder, not specified as traumatic; Z98.890 Other specified postprocedural states
CPT/HCPCS: 97110; 97140; 97150; 97161; 97535

== ENCOUNTER 2023-05-29 08:27 | Outpatient (AMB) | payer BC, SELFPAY ==
--- NOTE | 2023-05-29 08:31 | A.OFFPC_ITS ---
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 Blood pressure today 158/112. Had been on valsartan before in the past. He is currently not taking anything for his meds. He notes he had a big dinner yesterday. Pt reports he has been doing physical therapy for his shoulders. Pt has complaints of a rash on his back. [facility] Medical History (Updated 05/29/23 @ 08:51 by Ramana Dale) Tear meniscus knee Trigger finger, right middle finger Umbilical hernia High cholesterol Surgical History (Updated 04/25/23 @ 09:58 by Reema Rosas [facility]) Hx of shoulder surgery (03/10/23) H/O left knee surgery Family History Maternal Grandmother Alcohol abuse Social History Household Members: Friend(s) Housing: House Are you a primary urgent care nurse practitioner to a significant other at home: No Do you presently have visiting nurse or other home services: No 75 years or older and lives alone: No Alcohol intake: current Alcohol intake frequency: 0-2 drinks per day Alcohol type: hard liquor Patient Tobacco Use Status: Current everyday Tobacco user Tobacco use type: Smokeless Tobacco e-Cigarette/Vaping Use: Never Used Second Hand Smoke Exposure: No service: Yes ([employer]) Current occupational status: employed Current occupation: [employer] Current occupational exposures/hazards: Yes Sexual orientation: Unable to collect Gender identity: Unable to collect Cognitive needs: No Hearing needs: Yes Vision needs: Yes (Wears glasses for distance) Questionnaire Thrive Questionnaire Date Thrive assessed: 12/26/22 AUDIT C Alcohol Use Questionnaire (AUDIT-C) 1. How often do you have a drink containing alcohol?: 4 or more times a week 2. How many drinks containing alcohol do you have on a typical day when you are drinking?: 3 or 4 3. How often do you have six or more drinks on one occasion?: Monthly Total Score: 7 SUKHWINDER-7 AMB Questionnaire SUKHWINDER-7 Date SUKHWINDER - 7 assessed: 12/26/22 Source: Developed by Drs. John Pacheco, Geeta Soares, Keyon Goldsmith and colleagues, with an educational georgina from [employer]. Review of Systems Const Denies chills, Denies fatigue, Denies fever(s), Denies headache(s) and Denies weakness ENT Denies dizziness and Denies headache(s) Card Denies dyspnea Resp Denies cough, Denies dyspnea, Denies wheezing and Denies other (shortness of breath) Musc Denies numbness and Denies tingling Skin/Breast Reports rash Neuro Denies dizziness, Denies headache(s), Denies numbness, Denies tingling and Denies weakness Psych Denies anxiety and Denies depression Endo Denies fatigue Aller/Immun Denies wheezing Physical exam (Primary Care) Vital Signs: Last Vital Signs Temp 98.1 F 05/29/23 08:37 Pulse 84 05/29/23 08:37 Resp 14 05/29/23 08:37 BP 158/112 H 05/29/23 08:40 Pulse Ox 98 05/29/23 08:37 Oxygen Delivery Method Room Air 05/29/23 08:37 BMI result Body Mass Index 27.6 Tobacco/Smoking Status: Tobacco use Status Tobacco use date assessed 05/29/23 05/29/23 08:43 Patient Tobacco Use Status Current everyday Tobacco 05/29/23 08:43 Tobacco use type Smokeless Tobacco 05/29/23 08:43 e-Cigarette/Vaping Use Never Used 05/29/23 08:43 Thrive Assessment: Date of Thrive Assessment Date Thrive assessed 12/26/22 05/29/23 08:43 Const General: well developed; No acute distress Nutritional Appearance: well nourished Orientation/consciousness: patient oriented x3 [facility] Head: Yes normocephalic and Yes atraumatic Eyes General: appearance normal, both eyes and all related structures Pupils: Equal, round and reactive pupils present EOM: EOMs intact bilaterally Resp Effort & Inspection: normal respiratory effort Auscultation: clear to auscultation bilaterally Cardio Rate: regular rate Rhythm: regular rhythm Heart sounds: S1 normal heart sound present, S2 normal heart sound present, no gallops, no murmurs and no rubs Neuro General: patient oriented x3 and gait normal Cranial nerves: Yes Equal, round and reactive pupils present Psych Affect: normal affect Assessment and Plan Assessment & Plan (1) Hypertension: Code(s): I10 - Essential (primary) hypertension Plan: Blood?pressure?significantly?elevated?today.??H e?had?been?on?valsartan?in?the?past?though?he?has?been?off?of?this. However,?he?notes?that?he?had?a?very?salty?meal?yesterday?for?the?holiday. Goal?is?less?than?140/90 Will?restart?valsartan?at?80?mg?daily He?checks?his?blood?pressures?at?home?and?I?encouraged?him?to?do?so. Watch?salt/sodium Will?follow-up?in?3?months (2) Hyperlipidemia: Code(s): E78.5 - Hyperlipidemia, unspecified Plan: Mildly?elevated?LDL?cholesterol?though?his?HDL?is?desirably?high HDL?ratios?are?good Encouraged?a?diet?low?in?saturated?fats?and?cholesterol He?can?get?his?cholesterol?rechecked?and?I?will?call?if?action?is?required.??Oth erwise?we?will?review?at?his?next?visit (3) Right shoulder pain: Code(s): M25.511 - Pain in right shoulder Plan: Patient?was?referred?to?Ortho.??He?has?begun?physica l?therapy?and?is?improving?while (4) Rash: Code(s): R21 - Rash and other nonspecific skin eruption Plan: Rash?in?a?follicular?pattern Appears?to?be?folliculitis.??Giving?him?a?short?course?of?Bactrim?and?he?can?use ?Hibiclens Medications: New valsartan 80 mg PO DAILY 30 days 30 tabs 2RF sulfamethoxazole-trimethoprim 800-160 mg (Bactrim DS) 1 tab PO Q12H 7 days 14 tabs 0RF Coding Level of Care Code Est Pt Level 4 (69678) Diagnoses Hypertension I10 Hyperlipidemia E78.5 Right shoulder pain M25.511 Rash R21
[2023-05-29 08:37] VITALS: BP 162/110; PULSE 84; RESP 14; TEMP 36.7; O2SAT 98; BMI 27.6
[2023-05-29 08:40] VITALS: BP 158/112
== END 2023-05-29 08:57 | disposition home or self-care (01) ==
PROVIDERS: PCP Family Medicine; Visit Provider Family Medicine
DX: I10 Essential (primary) hypertension (principal); E78.5 Hyperlipidemia, unspecified; M25.511 Pain in right shoulder; R21 Rash and other nonspecific skin eruption
CPT/HCPCS: 99214

== ENCOUNTER 2023-06-27 07:43 | Outpatient (AMB) | payer BC, SELFPAY ==
[2023-06-27 07:45] VITALS: BMI 27.5
--- NOTE | 2023-06-27 07:45 | MHC.OFFVIS ---
Vital Signs 06/27/23 07:45 Height 5 ft 10 in Weight 192 lb BMI 27.5 Intake Visit Reasons: OV-Rt RTC Repair 03/10/23 Intake Note: Mauro is a 57 year old male who presents for a follow up s/p right RTC on 03/10/23 . Patient reports he is doing well and has no problems or concerns at this time. He continues with his home stretching program. He has returned to playing golf. He does not take any medicines for his discomfort. Allergies Penicillins Allergy (Mild, Verified 06/27/23 07:49) Rash Medication List - Last Reconciled 06/27/23 by Sander Balbuena MD sulfamethoxazole-trimethoprim 800-160 mg (Bactrim DS) 1 tab PO Q12H 7 days valsartan 80 mg PO DAILY 30 days PFSH Medical History Tear meniscus knee Trigger finger, right middle finger Umbilical hernia High cholesterol Surgical History Hx of shoulder surgery (03/10/23) H/O left knee surgery Family History Maternal Grandmother Alcohol abuse Social History Household Members: Friend(s) Housing: House Are you a primary palliative care specialist to a significant other at home: No Do you presently have visiting nurse or other home services: No 75 years or older and lives alone: No Alcohol intake: current Alcohol intake frequency: 0-2 drinks per day Alcohol type: hard liquor Patient Tobacco Use Status: Current everyday Tobacco user Tobacco use type: Smokeless Tobacco e-Cigarette/Vaping Use: Never Used Second Hand Smoke Exposure: No service: Yes ([employer]) Current occupational status: employed Current occupation: [employer] Current occupational exposures/hazards: Yes Sexual orientation: Unable to collect Gender identity: Unable to collect Cognitive needs: No Hearing needs: Yes Vision needs: Yes (Wears glasses for distance) Physical Exam Vital Signs: BMI result Body Mass Index 27.5 Const Other: Well-nourished well-developed very friendly male awake alert and oriented x3 in no acute distress Extrem Other: Bilateral upper extremity examination shows good capillary refill, no skin lesions noted, normal sensation light touch Right shoulder examination shows full range of motion when compared to his left shoulder, 5/5 strength with supraspinatus testing, no discomfort with resisted forward flexion, internal rotation or external rotation Assessment & Plan Assessment & Plan (1) Right shoulder pain: Code(s): M25.511 - Pain in right shoulder Category: Medical Plan Mr. Andersen continues to do well after undergoing right shoulder cuff repair surgery on 03/10/2023. She will continue with his home stretching program to prevent stiffness. The do's and don'ts of lifting were discussed at length with the patient. He will contact me prior to his follow-up appointment in 3 months should any questions or concerns arise. Feel free to call me at any time should questions regarding his orthopedic management arise. I spent 22 minutes in reviewing the patient's records and imaging studies, seeing the patient and documenting in the medical record. Coding Level of Care Code Est Pt Level 2 (36145) Diagnoses Right shoulder pain M25.511
== END 2023-06-27 08:02 | disposition home or self-care (01) ==
PROVIDERS: PCP Family Medicine; Visit Provider Orthopaedic Surgery
DX: M25.511 Pain in right shoulder (principal)
CPT/HCPCS: 99213

== ENCOUNTER → 2023-06-27 07:43 | Outpatient (BNVA) | payer BC, SELFPAY | PROVIDERS: PCP Family Medicine; Visit Provider Orthopaedic Surgery ==